=== PATIENT | female | born 1955 | race Caucasian/White ===

== ENCOUNTER 2019-09-11 15:03 | Emergency (ER) | payer BC, OTHER ==
[~2019-09-11] VITALS: Ht 170.2 cm; Wt 73.9 kg
[2019-09-11 15:40] VITALS: BP_SYST 132
--- NOTE | 2019-09-11 15:45 | NUR ---
Patient triaged and placed in waiting room. VSS and patient appears in no acute distress at this time. Accompanied by SELF, awaiting available bed, and MD notified of need for MSE.
--- NOTE | 2019-09-11 16:02 | NUR ---
Patient to ER bed 6 to gown for evaluation. Side rails up. Report given to JONI SOSA .
--- NOTE | 2019-09-11 16:15 | NUR ---
Pt presents to the ER for laceration to the head and knee x two hours ago. Pt states she tripped and fell on her left knee and hitting her head on a door edge causing a laceration. Denies LOC,dizziness, blurry vision or n/v. Pt reports slight headache. Vitals WNL, stable. Will continue to monitor.
--- NOTE | 2019-09-11 16:20 | NUR ---
ER at bedside examining patient.
[2019-09-11] MEDS ORDERED: DIPH-TET-PERTUS Vaccine 0.5 ML VIAL (ADACEL) I.M. ONE (16:30)
[2019-09-11] MEDS ORDERED: LIDOCAINE 1% 10 MG/ML, 20 ML MDV SUBCUT ONE (16:30)
[2019-09-11] MEDS ORDERED: BACITRACIN 1 GM OINT TP ONE (16:30)
--- NOTE | 2019-09-11 16:40 | NUR ---
Patient has a 4 cm laceration to the pariteal. applied 14 jeffery using sterile technique. Edges well approximated. Site cleansed with betadine solution. Dressing of bacitracin applied to site. Pt tolerated well.
--- NOTE | 2019-09-11 16:45 | NUR ---
Order for Tetnus vaccine not given, pt states receiving vaccine withn the last two years.
[2019-09-11 17:19] VITALS: BP_SYST 157
--- NOTE | 2019-09-11 17:19 | NUR ---
Patient given written and verbal discharge instructions and verbalizes understanding. ER Dr. Merino discussed with patient the results and treatment provided. Patient in stable condition. ID arm band removed. Rx of tylenol 325 mg and neosporin pointment given. Patient educated on pain management and to follow up with PMD. Pain Scale 0/10. Opportunity for questions provided and answered. Medication side effect fact sheet provided.
== END 2019-09-11 17:19 | disposition home or self-care (01) ==
LOC: SED 15:03
DX: S01.01XA Laceration without foreign body of scalp, initial encounter (principal); W01.198A Fall on same level from slipping, tripping and stumbling with subsequent striking against other object, initial encounter; Y93.89 Activity, other specified; Y92.89 Other specified places as the place of occurrence of the external cause; Y99.8 Other external cause status
CPT/HCPCS: 12002; 90715; 99282; J2001